=== PATIENT | male | born 1940 | race Caucasian/White ===

== ENCOUNTER → 2016-12-20 | Outpatient (CLI) | payer MEDICARE, OTHER ==
[~2016-12-20] MED LIST: AMOX500C; AMOX500C PO; ASPI1TAB69 PO; HYDR-3583 PO; SIMV20TA; SIMV20TA PO
[2016-12-20 10:08] LABS: AUTOMATED NEUTROPHIL # 2.5 TH/MM3 (1.8-7.7); BASOPHIL % 0.5 % (0.0-2.0); EOSINOPHIL # 0.1 TH/MM3 (0-0.4); EOSINOPHIL % 1.3 % (0.0-4.0); HEMATOCRIT 45.4 % (39.0-51.0); HEMO FLAGS DIFF FINAL; LYMPH % 37.6 % (9.0-44.0); LYMPHOCYTE # 1.9 TH/MM3 (1.0-4.8); MEAN CELL VOLUME 97.3 FL (80.0-100.0); MEAN CORPUSCULAR HEMOGLOBIN 32.8 PG (27.0-34.0); MEAN CORPUSCULAR HGB CONC 33.7 % (32.0-36.0); MONO % 9.7 % (0.0-8.0); NEUT % 50.9 % (16.0-70.0); PLATELET COUNT 159 TH/MM3 (150-450); RED BLOOD COUNT 4.67 MIL/MM3 (4.50-5.90); RED CELL DISTRIBUTION WIDTH 12.5 % (11.6-17.2)
[2016-12-20 10:18] LABS: PROTHROMBIN TIME - PATIENT 10.8 SEC (9.8-11.6)
[2016-12-20 10:20] LABS: BLOOD, URINE NEG (NEG); GLUCOSE,URINE NEG (NEG); KETONE, URINE NEG (NEG); MUCUS URINE FEW /lpf (OCC); NITRITE,URINE NEG (NEG); PH, URINE 6.5 (5.0-8.5); URINE COLOR YELLOW (YELLW/STRAW)
[2016-12-20 10:28] LABS: COMMENT (UR) CULT NOT INDICATED; CULTURE IF INDICATED CULT NOT INDICATED
--- NOTE | 2016-12-20 10:30 | RADRPT ---
EXAM DATE/TIME: 12/20/2016 10:00 [facility] COMPARISON: No previous studies available for comparison. INDICATIONS : Evaluate for pneumonia, pneumothorax, or communicable disease. Pre op for laminectomy. MEDICAL HISTORY : None. SURGICAL HISTORY : CABG. ENCOUNTER: Initial ACUITY: 1 day PAIN SCORE: 0/10 LOCATION: Bilateral chest FINDINGS: PA and lateral views of the chest demonstrate the lungs to be symmetrically aerated without evidence of mass, infiltrate or effusion. The cardiomediastinal contours are unremarkable. Osseous structure s are intact. Median sternotomy wires are noted status post cardiac surgery. CONCLUSION: No acute disease. Robert Lopez MD on December 20, 2016 at 10:28 Board Certified Radiologist. This report was verified electronically.
[2016-12-20 10:44] LABS: ALKALINE PHOSPHATASE 55 U/L (45-117); ALT (GPT) 32 U/L (12-78); ANION GAP 5 MEQ/L (5-15); AST (GOT) 22 U/L (15-37); BICARBONATE 32.5 MEQ/L (21.0-32.0); BLOOD UREA NITROGEN 14 MG/DL (7-18); CHLORIDE 105 MEQ/L (98-107); GLOMERULAR FILTRATION RATE 71 ML/MIN (>89); GLUCOSE,FASTING 97 MG/DL (74-99); POTASSIUM 4.9 MEQ/L (3.5-5.1); SODIUM (NA) 142 MEQ/L (136-145); TOTAL BILIRUBIN ADULT 0.7 MG/DL (0.2-1.0)
--- NOTE | 2016-12-21 18:31 | EKG ---
Date Performed: 12/20/2016 Time Performed: 09:27:29 PTAGE: 76 years EKG: SINUS BRADYCARDIA MARKED LEFT AXIS DEVIATION INCOMPLETE RIGHT BUNDLE BRANCH BLOCK ABNORMAL ECG Compared to prior tracing no significant change PREVIOUS TRACING : 10/26/2007 12.18 DOCTOR: Theo Daily Interpretating Date/Time 12/21/2016 18:27:56
== END ==
LOC: CPRE 08:46
PROVIDERS: ATTEND Neurological Surgery
DX: Z01.810 Encounter for preprocedural cardiovascular examination (principal); M48.06 Spinal stenosis, lumbar region; R94.31 Abnormal electrocardiogram [ECG] [EKG]; Z01.818 Encounter for other preprocedural examination; Z01.812 Encounter for preprocedural laboratory examination
CPT/HCPCS: 36415; 71020; 80053; 81001; 85025; 85610; 85730; 93005

== ENCOUNTER 2016-12-22 06:21 | Observation (INO) | payer MEDICARE, OTHER ==
[~2016-12-22] VITALS: Ht 177.8 cm; Wt 93.0 kg
[~2016-12-22 06:21] MED LIST changes: -AMOX500C; -HYDR-3583 PO; -SIMV20TA
[2016-12-22] MEDS: SODIUM CHLOR 0.9% 1000 ML INJ 1,000 ML IV SCH (06:45)
[2016-12-22] MEDS ORDERED: VANCOMYCIN HCL 1000 MG ON-CALL/NS 250 ML IV SCH ×2 (06:45)
[2016-12-22] MEDS ORDERED: SODIUM CHLORID 0.9% 500 ML IV PRN (06:45)
[2016-12-22] MEDS ORDERED: METOPROLOL TARTRATE 25 MG TAB PO PRN (06:45)
[2016-12-22] MEDS ORDERED: INSULIN HUMAN REGULAR 1,000 UNITS/10 ML VIAL SQ PRN (06:45)
[2016-12-22] MEDS ORDERED: LACTATED RINGER'S 1000 ML IV PRN (06:45)
[2016-12-22] MEDS ORDERED: POVIDONE IODINE 5% (ANTISEPSIS KIT) 4 APPLICATIONS EACH NARE PRN (06:45)
[2016-12-22] MEDS ORDERED: CHLORHEXIDINE GLUCONATE 2 % 1 PACK (2 CLOTHS) TOPICAL PRN (06:45)
[2016-12-22 06:54] VITALS: BP 142/77; PULSE 57; RESP 16; TEMP 97.9; O2SAT 98
[2016-12-22] MEDS ORDERED: BUPIVACAINE HCL PF 0.5% 30 ML VIAL ONE (07:23)
[2016-12-22] MEDS ORDERED: ceFAZolin 2 GM PREMIX 50 ML ONE (07:23)
[2016-12-22] MEDS ORDERED: methylPREDNISolone ACETATE 40 MG/ML VIAL ONE (07:23)
[2016-12-22] MEDS ORDERED: THROMBIN (TOPICAL) 5,000 UNIT VIAL ONE (07:23)
[2016-12-22] MEDS ORDERED: GELFOAM SIZE 100 ONE (07:24)
[2016-12-22] MEDS ORDERED: GENTAMICIN SULFATE 80 MG/2 ML VIAL ONE (07:24)
[2016-12-22] MEDS ORDERED: BUPIVACAINE/EPINEPHRINE 0.5% PF 30 ML VIAL ONE (07:25)
[2016-12-22] MEDS ORDERED: ARTIFICIAL TEARS OPTH OINT 3.5 APPLIC/3.5 GM TUBO ONE (08:04)
[2016-12-22] MEDS ORDERED: FAMOTIDINE 20 MG/2 ML VIAL ONE (08:04)
[2016-12-22] MEDS ORDERED: fentaNYL CITRATE 250 MCG/5 ML AMP ONE (08:04)
[2016-12-22] MEDS ORDERED: MIDAZOLAM HCL 2 MG/2 ML VIAL ONE (08:04)
[2016-12-22] MEDS ORDERED: ACETAMINOPHEN 1000 MG/100 ML VIAL IV ONE (08:04)
[2016-12-22] MEDS: NS + KCL 20 MEQ INJ 1,000 ML IV SCH ×2 (11:05→20:10)
--- NOTE | 2016-12-22 11:11 | PD.OP ---
Operative Report Date of Surgery: December 22, 2016 Preoperative Diagnosis: Lumbar spinal stenosis Postoperative Diagnosis: Lumbar spinal stenosis Procedure: L4-5 right hemilaminectomy, mesiofacetectomy, foraminotomy with microsurgical resection of the disk Anesthesia: general Surgeon: Andrew Walker Salesperson Shoes(s): Geovanna Jones Operation and Findings: INDICATIONS FOR THE SURGICAL PROCEDURE Mr Adler is a 76 year-old male who presented with intractable mechanical back pain and clinical evidence of right L5 lower extremity radiculopathy. He was found to have significant focal spinal stenosis with a disk protusion causingstenosis with significant mass effect on the neural structures which correlated with the clinical symptoms. The patient has failed maximum nonsurgical management including multiple modalities of conservative treatment as well as pain management interventions by an interventional pain specialist. A surgical decompression were indicated as a last resort. The [id number] details of the procedure, indications, alternatives, risks and potential complications were fully discussed with the patient. The patient fully understood. All the questions were answered. No guarantees were given. The patient voiced requesting the procedure and signed informed consents. He was offered the alternative of delaying the procedure and continuing with nonsurgical management. DETAILS OF THE SURGICAL PROCEDURE After the induction of general anesthesia, endotracheal intubation was performed. A Rojas catheter, bilateral CARLOS hose and sequential compression devices were placed and kept throughout the procedure. The patient was positioned prone on a Matheus table over a Luis frame. All pressure points were carefully padded with eggcrate mattress. The eyes were tapped shut after ointment was applied by the anesthesiologist to prevent corneal abrasion. A Carol Ann hugger was placed over the exposed lower body to maintain control of the core body temperature. The lower lumbar region was prepped and draped in the usual sterile fashion. A spinal needle was placed for localization and an x- ray performed with a C-arm. A skin incision was made in the midline over the spinous processes L4-L5 with a #10 blade. Small subcutaneous bleeders were controlled with a bipolar and the dissection was carried out through the lumbar fascia exposing the spinous processes. A subperiostial dissection was performed with a Nunez elevator and a Bovie over the right L4-L5 spinous process lamina and facets. A microdiscectomy self-retaining retractor was placed on the incision and an x- ray was obtained with an instrument placed underneath the lamina. At this point in the procedure the operating microscope was draped in the usual sterile fashion and brought to the field. The rest of the surgical procedure was performed using microsurgical dissection technique with exception of the closure. Once the level was confirmed, a right decompressive laminectomy was performed at L4-L5 using the TPS drill with an 4mm drill bit. A medial facetectomy was performed and the superior free border of the ligamentum flavum was dissected with a ligament dissector and removed with a thin footplate 2 mm Kerrison. The medial facetectomy was done and the L5 nerve root was identified and followed towards its exit in the foramen. Epidural veins located laterally to the dural sac were coagulated with a bipolar and incised with microscissors. Gentle medial retraction of the dural sac allowed inspection of the disc space. The patient had severe facet arthropathy with hypertrhopy of the joint facets and ligamentum flavum resulting in mass effect over the dural sac and nerve roots. In addition, there was a broad-based disc protusion, contributing to the stenosis. The annulus fibrosus of the disc was coagulated with the bipolar and incised with an 11 blade. The extruded disc was carefully dissected from the surrounding tissue and removed with pituitary forceps. Then, a microdiscectomy was carried out in the standard fashion using straight and up-biting pituitary forceps. A good decompression of the dural sac and nerve root was achieved. The exit of the nerve root was inspected for residual disc fragments and hemostasis was secured with the bipolar. The incision was irrigated with a large amount of saline solution. A Valsalva maneuver failed to show any cerebrospinal fluid leak or bleeding. The decompression was assessed again and found to be satisfactory. The incision was then closed in layers. The fascia was closed with 0 Vicryl sutures in an interrupted fashion. The superficial fascia was closed with 0 Vicryl sutures. The fascia was infiltrated with 0.5% Marcaine with epinephrine 1:100,000 dilution. The subcutaneous tissue was irrigated then closed with 0 Vicryl and 3 -0 Vicryl. The skin was closed with 4-0 running subcuticular Vicryl. A sterile dressing was applied. At the end of the procedure, the sponge, needle and instrument counts were all correct. Estimated blood loss was less than 50 cc. No blood transfusion was given. No intraoperative complications occurred. The patient received prophylactic antibiotics. The patient was then extubated and transferred to the recovery room in stable condition. Andrew Walker MD December 22, 2016 11:11
[2016-12-22] MEDS ORDERED: HYDR-3583 PO (11:12)
[2016-12-22] MEDS ORDERED: ACETAMINOPHEN 325 MG TAB PO PRN (11:15)
[2016-12-22] MEDS ORDERED: SODIUM CHLORIDE 0.9% FLUSH 5 ML FLUSH IVF PRN (11:15)
[2016-12-22] MEDS ORDERED: MORPHINE SULFATE 4 MG/ML INJ IV PUSH PRN ×2 (11:15)
[2016-12-22] MEDS ORDERED: ACETAMINOPHEN/HYDROcodone 325 MG/10 MG TAB PO PRN ×2 (11:15)
[2016-12-22] MEDS ORDERED: DO NOT ADM ANY ANTICOAGULANT DRUGS PRN (11:30)
[2016-12-22] MEDS ORDERED: LACTATED RINGER'S 1000 ML INJ 1,000 ML IV ONE (12:00)
[2016-12-22] MEDS ORDERED: ONDANSETRON HCL 4 MG/2 ML VIAL IV PUSH ONE (12:00)
[2016-12-22] MEDS ORDERED: PROPOFOL 200 MG/20 ML AMP IV ONE (12:00)
[2016-12-22] MEDS ORDERED: AMOXICILLIN (TRIHYDRATE) 500 MG CAP PO SCH (12:00)
[2016-12-22] MEDS ORDERED: NEOSTIGMINE 3 MG/3 ML SYR IV ONE (12:00)
[2016-12-22 12:33] VITALS: BP 140/78; PULSE 67; RESP 16; TEMP 95.6; O2SAT 97
[2016-12-22] MEDS: ceFAZolin 2 GM PREMIX 50 ML IV SCH ×2 (12:56→20:09)
--- NOTE | 2016-12-22 15:10 | RADRPT ---
EXAM DATE/TIME: 12/22/2016 09:11 [facility] COMPARISON: No previous studies available for comparison. INDICATIONS : Microdiskectomy, herniated disk. MEDICAL HISTORY : None. SURGICAL HISTORY : None. ENCOUNTER: Initial ACUITY: 1 day PAIN SCORE: Non-responsive. LOCATION: Right lumbar spine FINDINGS: Localization marker overlies L5-S1 disc space. CONCLUSION: L5-S1 Júnior Delgado MD on December 22, 2016 at 15:08 Board Certified Radiologist. This report was verified electronically.
--- NOTE | 2016-12-22 15:44 | HHI.DCPOC ---
Discharge Care Plan Diagnosis: (1) S/P lumbar laminectomy Goals to Promote Your Health * To prevent worsening of your condition and complications * To maintain your health at the optimal level Directions to Meet Your Goals Take your medications as prescribed Follow your dietary instruction Follow activity as directed Keep your appointments as scheduled Take your immunizations and boosters as scheduled If your symptoms worsen call your PCP, if no PCP go to Urgent Care Center or Emergency Room Smoking is Dangerous to Your Health. Avoid second hand smoke Call the 24-hour hour crisis hotline for domestic abuse at Leslie Piña December 22, 2016 15:44
[2016-12-22 16:54] VITALS: BP 140/74; PULSE 90; RESP 16; TEMP 96.5; O2SAT 95
[2016-12-22] MEDS: AMOXICILLIN (TRIHYDRATE) 500 MG CAP PO SCH ×2 (17:45→20:09)
[2016-12-22 19:25] VITALS: BP 118/70; PULSE 92; RESP 17; TEMP 97.9; O2SAT 95
[2016-12-22] MEDS: DOCUSATE SODIUM 100 MG CAP PO SCH (20:09)
[2016-12-22] MEDS: SODIUM CHLORIDE 0.9% FLUSH 5 ML FLUSH IVF SCH (20:10)
[2016-12-22 21:45] VITALS: O2SAT 95
[2016-12-23] VITALS: BP 115/61; PULSE 78; RESP 17; TEMP 98; O2SAT 95
[2016-12-23] MEDS: SODIUM CHLOR 0.9% 1000 ML INJ 1,000 ML IV SCH (04:23)
[2016-12-23] MEDS: ceFAZolin 2 GM PREMIX 50 ML IV SCH (04:25)
[2016-12-23 04:30] VITALS: BP 117/66; PULSE 71; RESP 17; TEMP 96.4; O2SAT 97
[2016-12-23] MEDS: NS + KCL 20 MEQ INJ 1,000 ML IV SCH (07:05)
[2016-12-23 08:00] VITALS: BP 128/73; PULSE 67; RESP 18; TEMP 96.8; O2SAT 98
[2016-12-23] MEDS: DOCUSATE SODIUM 100 MG CAP PO SCH (08:33)
[2016-12-23] MEDS: AMOXICILLIN (TRIHYDRATE) 500 MG CAP PO SCH (08:34)
[2016-12-23] MEDS: SODIUM CHLORIDE 0.9% FLUSH 5 ML FLUSH IVF SCH (08:36)
[2016-12-23] MEDS ORDERED: PANTOPRAZOLE SOD 40 MG DELAYED RELEASE TAB PO SCH (09:00)
[2016-12-23] MEDS ORDERED: PRAVASTATIN SOD 40 MG TAB PO SCH (09:00)
[2016-12-23 10:38] VITALS: O2SAT 96
--- NOTE | 2016-12-23 12:29 | HHI.DS ---
Discharge Summary Admission Date December 22, 2016 at 11:06 Discharge Date: December 23, 2016 Admitting Diagnosis s/p lumbar laminectomy (1) S/P lumbar laminectomy ICD Code: Z98.890 Brief History Mr. Adler is a 76 year-old male who presented with intractable mechanical back pain and clinical evidence of right L5 lower extremity radiculopathy. He was found to have significant focal spinal stenosis with a disk protrusion causing stenosis with significant mass effect on the neural structures which correlated with the clinical symptoms. The patient has failed maximum nonsurgical management including multiple modalities of conservative treatment as well as pain management interventions by an interventional pain specialist. A surgical decompression were indicated as a last resort. Imaging Last Impressions Lumbar Spine X-Ray 12/22/16 0000 Signed Impressions: Service Date/Time: Thursday, December 22, 2016 09:11 - CONCLUSION: L5-S1 Júnior Delgado MD PE at Discharge The patient is alert, in no apparent distress. Speech is fluent. Mentation intact. Incision is clean and dry, with dermabond prineo dressing in place. Cranial nerve examination: pupils equal, round and reactive to light. Extra- ocular movements are intact. Facial motor are normal and symmetrical. Motor: moving all four extremities. Respiratory: nonlabored Hospital Course Mr. Adler underwent a L4-5 right hemilaminectomy, mesiofacetectomy, foraminotomy with microsurgical resection of the disk on December 22, 2016. His surgery went well without complications. He was discharged home in stable conditions. Activity restrictions, wound care, and signs and symptoms to watch for were fully discussed with the patient. Pt Condition on Discharge: Stable Discharge Disposition: Discharge Home Discharge Instructions DIET: Follow Instructions for: Heart Healthy Diet ACTIVITIES You can perform: Weight Bearing As Theo ADDITIONAL Activity Instructio: Avoid strenuous activities, heavy lifting, overhead activities, repetitive bending, twisting, pushing, pulling or any activities which might result in stress over the spine. Avoid situtation that will put at risk for falls. Use assistive device as needed for walking. Wear lumbar brace when out of bed. Follow up Referrals: Appointment for Follow Up with Andrew Walker MD New Medications: Hydrocodone-Acetaminophen (Hydrocodone-Acetaminophen) 10-325 mg Tab 1 TAB PO Q8HR PRN PAIN SCALE 1 TO 10 #90 Ref 0 TAB Continued Medications: Amoxicillin (Amoxicillin) 500 Mg Cap 500 MG PO Q4HR Infection Ref 0 CAP Aspirin (Aspirin) 81 Mg Tabdr 81 MG PO DAILY TAB Simvastatin (Simvastatin) 20 Mg Tab 20 MG PO DAILY Cholesterol Management #30 Ref 0 TAB Leslie Piña December 23, 2016 12:29
== END 2016-12-23 12:57 | disposition home or self-care (01) ==
LOC: HSDC 06:21 → HSDI 11:06 → N06B 12:32
PROVIDERS: ADMIT Neurological Surgery; ATTEND Neurological Surgery
DX: M51.16 Intervertebral disc disorders with radiculopathy, lumbar region (principal); M48.06 Spinal stenosis, lumbar region; I25.10 Atherosclerotic heart disease of native coronary artery without angina pectoris; Z95.1 Presence of aortocoronary bypass graft; Z88.8 Allergy status to other drugs, medicaments and biological substances
CPT/HCPCS: 63030; 72020; 76000; 94150; 97162; G0378; G8987; G8988; J0131; J0690; J1030; J1580; J2250; J2405; J2710; J3010; J3370; J3480; J7050; J7120; L0627